=== PATIENT | male | born 1995 ===

== ENCOUNTER 2018-08-22 12:33 | Outpatient (CLI) | payer MEDICAID | END 2018-08-22 12:34 | disposition home or self-care (01) | LOC: C.MRIC 12:34 ==

== ENCOUNTER 2018-09-13 16:23 | Inpatient (IN) | payer MEDICAID ==
[2018-09-13 17:37] LABS: BASO % 0.5 % (0.0-2.0); EOS # 0.1 K/uL (0.0-0.7); EOS % 1.1 % (0.0-4.0); HEMOGLOBIN 14.3 g/dL (12.0-18.0); LYMPH # 1.8 K/uL (1.0-4.3); LYMPH % 25.6 % (20.0-40.0); MEAN CELL VOLUME 89.9 fL (80.0-94.0); MEAN CORPUSCULAR HEMOGLOBIN 29.8 pg (27.0-31.0); MEAN CORPUSCULAR HGB CONC 33.2 g/dL (33.0-37.0); MEAN PLATELET VOLUME 8.5 fL (7.2-11.7); MONO # 0.8 K/uL (0.0-0.8); MONO % 10.9 % (0.0-10.0); NEUT # 4.4 K/uL (1.8-7.0); NEUT % 61.9 % (50.0-75.0); RBC 4.8 Mil/uL (4.40-5.90); RED CELL DISTRIBUTION WIDTH 13.5 % (11.5-14.5); WHITE BLOOD COUNT 7.1 K/uL (4.8-10.8)
[2018-09-13 17:39] LABS: SQUAMOUS EPITHIAL < 1 /hpf (0-5); URINE BILIRUBIN NEGATIVE (NEGATIVE); URINE BLOOD NEGATIVE (NEGATIVE); URINE CLARITY Clear (Clear); URINE COLOR Straw (YELLOW); URINE GLUCOSE (UA) NORMAL (Normal); URINE LEUKOCYTE ESTERASE NEG Leu/uL (Negative); URINE PROTEIN NEGATIVE (NEGATIVE); URINE UROBILINOGEN NORMAL mg/dL (0.2-1.0)
--- NOTE | 2018-09-13 17:46 | C.PDOC ---
History Of Present Illness 22 year old male presents to the ED for evaluation of depression and suicidal ideation. Patient reports feeling depressed with suicidal ideation and having a plan. Patient denies HI, hallucinations, injury, fall, trauma. Time Seen by Provider: 09/13/18 17:04 Chief Complaint (Nursing): Psychiatric Evaluation History Per: Patient History/Exam Limitations: no limitations Onset/Duration Of Symptoms: Hrs Current Symptoms Are (Timing): Still Present Suicide/Self Injury Attempted (Context): None Associated Symptoms: Depression, Suicidal Thoughts, Suicidal Plan Recent travel outside of the [place]: No Additional History Per: Patient Past Medical History Reviewed: Historical Data, Nursing Documentation, Vital Signs Vital Signs: Last Vital Signs Temp 98.1 F 09/13/18 16:43 Pulse 100 H 09/13/18 16:43 Resp 17 09/13/18 16:43 BP 146/84 09/13/18 16:43 Pulse Ox 100 09/13/18 16:43 - Medical History PMH: Depression Surgical History: No Surg Hx - [facility] Procedures INDIVID PSYCHOTHERAP NEC (09/11/13) OTHER GROUP THERAPY (09/11/13) Family History: States: Unknown Family Hx - Social History Hx Tobacco Use: No Hx Alcohol Use: No Hx Substance Use: No - Immunization History Hx Tetanus Toxoid Vaccination: Yes Hx Influenza Vaccination: Yes Hx Pneumococcal Vaccination: No Review Of Systems Constitutional: Negative for: Fever, Chills Cardiovascular: Negative for: Chest Pain Respiratory: Negative for: Cough, Shortness of Breath Gastrointestinal: Negative for: Nausea, Vomiting, Abdominal Pain Skin: Negative for: Rash Neurological: Negative for: Weakness, Numbness Psych: Positive for: Depression, Suicidal ideation Physical Exam - Physical Exam Appears: Non-toxic, No Acute Distress Skin: Normal Color, Warm, Dry Head: Atraumatic, Normacephalic Eye(s): bilateral: Normal Inspection Neck: Normal ROM, Supple Chest: Symmetrical Cardiovascular: Rhythm Regular Respiratory: Normal Breath Sounds, No Rales, No Rhonchi, No Wheezing Gastrointestinal/Abdominal: Soft, No Tenderness Extremity: Normal ROM, No Tenderness, No Swelling Neurological/Psych: Oriented x3, Normal Speech, Other (Depressed, no acute intoxications) Gait: Steady ED Course And Treatment - Laboratory Results Result Diagrams: 09/13/18 17:29 09/13/18 17:29 O2 Sat by Pulse Oximetry: 100 (ON RA) Pulse Ox Interpretation: Normal Progress - Re-Evaluation Re-evaluation Note: 09/13/18 18:07 MED CLEAR FOR CRISIS. CRISIS NOTIFIED - Data Reviewed Data Reviewed: Lab, Old records Medical Decision Making Medical Decision Making: Plan: * Labs * UA * Crisis eval * 1:1 Obs Disposition Counseled Patient/Family Regarding: Studies Performed, Diagnosis - Disposition Disposition: HOSPITALIZED Disposition Time: 21:19 Condition: STABLE Forms: [facility] ([place]) - POA Present On Arrival: None - Clinical Impression Clinical Impression: Severe depression, Suicidal behavior - Scribe Statement The provider has reviewed the documentation as recorded by the Scribe Ciro Peterson All medical record entries made by the Scribe were at my direction and personally dictated by me. I have reviewed the chart and agree that the record accurately reflects my personal performance of the history, physical exam, medical decision making, and the department course for this patient. I have also personally directed, reviewed, and agree with the discharge instructions and disposition.
[2018-09-13 17:49] LABS: BARBITURATES, UR NEGATIVE (NEGATIVE); BENZODIAZEPINES, UR NEGATIVE (NEGATIVE); OPIATES, UR NEGATIVE (NEGATIVE); PHENCYCLIDINE, UR NEGATIVE (NEGATIVE)
[2018-09-13 17:58] LABS: ALB/GLOB RATIO 1.9 (1.0-2.1); ALBUMIN 4.7 g/dL (3.5-5.0); ALT/SGPT 30 U/L (21-72); AST/SGOT 27 U/L (17-59); BLOOD UREA NITROGEN 16 mg/dL (9-20); CALCIUM 9.6 mg/dl (8.6-10.4); GFR NON-AFRICAN AMERICAN > 60
[2018-09-13 23:27] VITALS: O2SAT 98
--- NOTE | 2018-09-14 00:35 | PCM.BM ---
<Eliana Gibson - Last Filed: 09/14/18 00:32> Treatment Plan Problems - Problems identified on initial assessmt Hoplessness and Helpressness Date Initiated: 09/13/18 Time Initiated: 00:45 Date resolved: 09/13/18 Assessment reference: NA Status: Active Social isolation Date Initiated: 09/13/18 Time Initiated: 00:45 Date resolved: 09/13/18 Assessment reference: NA Status: Active Altered sleep pattern Date Initiated: 09/13/18 Time Initiated: 00:45 Date resolved: 09/13/18 Treatment assets and liabiliti Patient Assests: cooperative (ease to engage), insightful, ADL independent (no physical limitation), physically healthy (No medical conditions,), negotiates basic needs (understood the need to follow rules at the unit.) - Milieu Protocol Maintain good personal hygiene: daily Encourage regular showers, daily Remind patient to perform daily oral care, daily Assist patient to perform ADL's Maintain personal safety: every shift Educate patient to report safety concerns to staff, every shift Monitor environment for contraband/sharps Medication safety: Monitor for expected outcome, potential side effects: every shift, Assess barriers to learning: every shift, Assess readiness for medication education: every shift <Caroline Sanchez - Last Filed: 09/16/18 10:55> - Diagnosis (1) Bipolar depression Status: Acute Interventions: 09/16/18 10:56 * Assess/adjust medications daily and /or as needed * See patient on an individual basis 7x/week to assess level of manic behaviors and stability * Discuss risks, benefits, side effects and alternatives of medications * <Itzel Cuello - Last Filed: 09/16/18 14:51> Family Contact Family involvement: Family/SO is involved Family contact: Patient declines to allow family contact at present - Goals for Treatment Patient goals for treatment: "I need a support group." Discharge/Continuing Care - Education Needs Education Needs: Patient Medication, Patient Coping Skills - Discharge Discharge Criteria: Tolerates medication w/o severe side effects, Reduction of target symptoms Discharge to:: Home, With Family - Treatment Team Participation Discussed with Family/SO: No Was Patient/Family/SO present at Treatment Team Meeting: Yes
--- NOTE | 2018-09-14 11:37 | PCM.PSYCH ---
Initial Psychiatric Evaluation - Initial Psychiatric Evaluation Type of Admission: Voluntary Legal Status: Capacity History of Present Illness and Precipitating Events: This is a 22 years old single male, who lives with his parents, came to the [facility] ED with increasingly depressed mood and suicidal ideation. Patient reports history of one inpatient psychiatric hospitalizations in 2013. However he reports that he stopped taking medication after a few months. Patient reports that since past few weeks he is feeling increasingly irritable and agitated. He also reports depressed mood and poor sleep. Patient reports persistent suicidal ideation the past month; however, the past 3 days they have increased in intensity and intent to jump from a great height. Yesterday he became increasingly suicidal so he came to the hospital to get help. He reports irritability, agitation, racing thoughts and anxiety. He also reports depressed mood and feelings of helplessness and worthlessness. He denies any auditory or visual hallucinations or any paranoia. He denies any drinking or any substance abuse. Past medical history None reported Current Medications: Active Medications Generic Name Dose Route Start Last Admin Trade Name Freq PRN Reason Stop Dose Admin Pneumococcal Polyvalent Vaccine 0.5 ml 09/16/18 10:00 Pneumovax 23 Vaccine IM 09/16/18 10:01 .ONCE ONE Past Psychiatric History - Past Psychiatric History Previous Treatment History: Inpatient Pertinent Medical Hx (Current Medical&Sleep Prob, Allergies): Allergies Allergy/AdvReac Type Severity Reaction Status Date / Time No Known Allergies Allergy Verified 09/13/18 16:46 Seroquel 100 mg DAILY 11/21/13 Zoloft 100 mg DAILY 11/21/13 Review of Systems - Review of Systems All systems: reviewed and no additional remarkable complaints except - Psychiatric Psychiatric: Anxiety, Irritability, Mood Swings, Suicidal Ideation Mental Status Examination - Personal Presentation Personal Presentation: Looks stated age - Affect Affect: Constricted, Depressed - Motor Activity Motor Activity: Calm - Reliability in Providing Information Reliability in Providing Information: Fair - Speech Speech: Organized - Mood Mood: Depressed, Anxious - Formal Thought Process Formal Thought Process: Flight of ideas - Obsessions/Compulsions Obsessions: No Compulsions: No - Cognitive Functions Orientation: Person, Place, Situation, Time Sensorium: Alert Attention/Concentration: Attentive Abstract Thinking: [place] Estimate of Intelligence: Below average Judgement: Imparied, as evidence by: Poor judgement, Imparied, as evidence by: Lack of insight into illness - Risk Risk: Suicidal, Diminished functioning - Limitations Limitations: Living alone DSM 5 DX - DSM 5 DSM 5 Diagnosis: Bipolar disorder depressed severe without psychotic features Generalized anxiety disorder - Recommended/Plan of Treatment Treatment Recommendations and Plan of Treatment: Bipolar disorder depressed severe without psychotic features Generalized anxiety disorder CBT Psychoeducation Supportive therapy, group therapy, milieu therapy Trazodone for insomnia [place] for mood Hydroxyzine for anxiety Neurontin for augmentation - Smoking Cessation Smoking Cessation Initiated: No
[2018-09-14] MEDS: Lithium Carbonate 150 MG CAP PO SCH (17:47)
[2018-09-15] MEDS: Lithium Carbonate 150 MG CAP PO SCH (09:21)
--- NOTE | 2018-09-15 13:58 | PCM.PYCHPN ---
Psychiatric Progress Note - Psychiatric Progress Note Patient seen today, length of contact: 15 min Patient Chief Complaint: I am still feeling depressed. Problems Identified/Issues Discussed: Patient was seen and evaluated, chart reviewed and discussed the staff. Patient reports irritability, agitation and anxiety. He reports depressed mood and at times feelings of hopelessness and helplessness. He denies any auditory or visual hallucinations or any paranoia. He is taking medication but denies any side effects. He needs to stay longer for further stabilization. Supportive therapy was given. Medication Change: Yes Medical Record Reviewed: Yes Mental Status Examination - Cognitive Function Orientation: Person, Place, Situation, Time Memory: Intact Attention: WNL Concentration: Poor Association: WNL Fund of Knowledge: Poor - Mood Mood: Depressed, Anxious - Affect Affect: Constricted, Depressed - Speech Speech: Soft - Formal Thought Process Formal Thought Process: Flight of ideas - Suicidal Ideation Suicidal Ideation: No - Homicidal Ideation Homicidal Ideation: No Goal/Treatment Plan - Goal/Treatment Plan Need for Continued Stay: Remain at risks for inpatient hospitalization Progress Toward Problem(s) and Goals/Treatment Plan: Bipolar disorder depressed severe without psychotic features Generalized anxiety disorder CBT Psychoeducation Supportive therapy, group therapy, milieu therapy Trazodone for insomnia [place] for mood Hydroxyzine for anxiety Neurontin for augmentation - Smoking Cessation Smoking Cessation Initiated: No
[2018-09-15] MEDS ORDERED: Lithium Carbonate 150 MG CAP PO SCH (18:00)
[2018-09-16] MEDS ORDERED: Pneumococcal 23-Valent Vaccine IM ONE (10:00)
--- NOTE | 2018-09-16 10:56 | PCM.PYCHPN ---
Psychiatric Progress Note - Psychiatric Progress Note Patient seen today, length of contact: 15 min Patient Chief Complaint: I am still feeling depressed. Problems Identified/Issues Discussed: Patient was seen and evaluated, chart reviewed and discussed the staff. Patient reports irritability, agitation and anxiety. He reports depressed mood and at times feelings of hopelessness and helplessness. He denies any auditory or visual hallucinations or any paranoia. He is taking medication but denies any side effects. He needs to stay longer for further stabilization. Supportive therapy was given. Medication Change: Yes Medical Record Reviewed: Yes Mental Status Examination - Cognitive Function Orientation: Person, Place, Situation, Time Memory: Intact Attention: WNL Concentration: Poor Association: WNL Fund of Knowledge: Poor - Mood Mood: Depressed, Anxious - Affect Affect: Constricted, Depressed - Speech Speech: Soft - Formal Thought Process Formal Thought Process: Flight of ideas - Suicidal Ideation Suicidal Ideation: No - Homicidal Ideation Homicidal Ideation: No Goal/Treatment Plan - Goal/Treatment Plan Need for Continued Stay: Remain at risks for inpatient hospitalization Progress Toward Problem(s) and Goals/Treatment Plan: Bipolar disorder depressed severe without psychotic features Generalized anxiety disorder CBT Psychoeducation Supportive therapy, group therapy, milieu therapy Trazodone for insomnia [place] for mood Hydroxyzine for anxiety Neurontin for augmentation
--- NOTE | 2018-09-17 13:58 | PCM.PYCHPN ---
Psychiatric Progress Note - Psychiatric Progress Note Patient seen today, length of contact: 15 min Patient Chief Complaint: I am still feeling depressed. Problems Identified/Issues Discussed: Patient was seen and evaluated, chart reviewed and discussed the staff. Patient reports irritability, agitation and anxiety. He reports depressed mood and at times feelings of hopelessness and helplessness. He denies any auditory or visual hallucinations or any paranoia. He is taking medication but denies any side effects. He needs to stay longer for further stabilization. Supportive therapy was given. Medication Change: Yes Medical Record Reviewed: Yes Mental Status Examination - Cognitive Function Orientation: Person, Place, Situation, Time Memory: Intact Attention: WNL Concentration: Poor Association: WNL Fund of Knowledge: Poor - Mood Mood: Depressed, Anxious - Affect Affect: Constricted, Depressed - Speech Speech: Soft - Formal Thought Process Formal Thought Process: Flight of ideas - Suicidal Ideation Suicidal Ideation: No - Homicidal Ideation Homicidal Ideation: No Goal/Treatment Plan - Goal/Treatment Plan Need for Continued Stay: Remain at risks for inpatient hospitalization Progress Toward Problem(s) and Goals/Treatment Plan: Bipolar disorder depressed severe without psychotic features Generalized anxiety disorder CBT Psychoeducation Supportive therapy, group therapy, milieu therapy Trazodone for insomnia [place] for mood Hydroxyzine for anxiety Neurontin for augmentation
[2018-09-19 06:45] VITALS: BP 126/62; PULSE 102; RESP 18; TEMP 98.3
--- NOTE | 2018-09-19 10:12 | PCM.PYCHDC ---
Mental Status Examination - Mental Status Examination Orientation: Person, Place, Situation, Time Memory: Intact Mood: Neutral Affect: Constricted Speech: Soft Attention: WNL Concentration: WNL Association: WNL Fund of Knowledge: WNL Formal Thought Process: No Impairment Description of patient's judgement and insight: good, fair Psychotic Thoughts and Behaviors: denies any AVH Suicidal Ideation: No Current Homicidal Ideation?: No Discharge Summary - Discharge Note Reason for Hospitalization: This is a 22 years old single male, who lives with his parents, came to the [facility] ED with increasingly depressed mood and suicidal ideation. Patient reports history of one inpatient psychiatric hospitalizations in 2013. However he reports that he stopped taking medication after a few months. Patient reports that since past few weeks he is feeling increasingly irritable and agitated. He also reports depressed mood and poor sleep. Patient reports persistent suicidal ideation the past month; however, the past 3 days they have increased in intensity and intent to jump from a great height. Yesterday he became increasingly suicidal so he came to the hospital to get help. He reports irritability, agitation, racing thoughts and anxiety. He also reports depressed mood and feelings of helplessness and worthlessness. He denies any auditory or visual hallucinations or any paranoia. He denies any drinking or any substance abuse. Consultations:: List each consultation separately and include: 1. Reason for request. 2. Findings. 3. Follow-up Summary of Hospital Course include:: 1. Description of specific treatment plan utilized for patients during their course of treatmen. 2. Summarize the time- course for resolution of acute symptoms and/or regressed behaviors. 3. Describe issues identified and worked on during hospitalization. 4. Describe medication utilized. 5. Describe medical problems identified and treated. 6. Reassessment of suicide risk Summary of Hospital Course: This is a 22 years old single male, who lives with his parents, came to the [facility] ED with increasingly depressed mood and suicidal ideation. Patient reports history of one inpatient psychiatric hospitalizations in 2013. However he reports that he stopped taking medication after a few months. Patient reports that since past few weeks he is feeling increasingly irritable and agitated. He also reports depressed mood and poor sleep. Patient reports persistent suicidal ideation the past month; however, the past 3 days they have increased in intensity and intent to jump from a great height. Yesterday he b ecame increasingly suicidal so he came to the hospital to get help. He reports irritability, agitation, racing thoughts and anxiety. He also reports depressed mood and feelings of helplessness and worthlessness. He denies any auditory or visual hallucinations or any paranoia. He denies any drinking or any substance abuse. Past medical history None reported - Diagnosis (1) Bipolar depression Current Visit: Yes Status: Acute - Final Diagnosis (DSM 5) Condition upon Discharge: STABLE DSM 5: Bipolar disorder depressed severe without psychotic features Generalized anxiety disorder Disposition: HOME/ ROUTINE Follow-up Treatment Plan: Bipolar disorder depressed severe without psychotic features Generalized anxiety disorder CBT Psychoeducation Supportive therapy, group therapy, milieu therapy Trazodone for insomnia [place] for mood Hydroxyzine for anxiety Neurontin for augmentation Prescriptions/Medication Reconciliation: [place] Carbonate [[place] Carbonate 300MG] 300 mg PO TID #90 cap traZODone [Desyrel] 100 mg PO HS #30 tab - Smoking Cessation Smoking Cessation Medication prescribed: No - Antipsychotic Medications Pt discharged on 2 or more routine antipsychotic medications: No
--- NOTE | 2018-09-19 10:12 | PCM.PYCHPN ---
Psychiatric Progress Note - Psychiatric Progress Note Patient seen today, length of contact: 15 min Patient Chief Complaint: I am still feeling depressed. Problems Identified/Issues Discussed: Patient was seen and evaluated, chart reviewed and discussed the staff. Patient reports irritability, agitation and anxiety. He reports depressed mood and at times feelings of hopelessness and helplessness. He denies any auditory or visual hallucinations or any paranoia. He is taking medication but denies any side effects. He needs to stay longer for further stabilization. Supportive therapy was given. Medication Change: Yes Medical Record Reviewed: Yes Mental Status Examination - Cognitive Function Orientation: Person, Place, Situation, Time Memory: Intact Attention: WNL Concentration: WNL Association: [facility] Fund of Knowledge: [facility] Decription of patient's judgement and insights: good, fair - Mood Mood: Neutral - Affect Affect: Constricted - Speech Speech: Soft - Formal Thought Process Formal Thought Process: No Impairment Psychotic Thoughts and Behaviors: denies any AVH - Suicidal Ideation Suicidal Ideation: No - Homicidal Ideation Homicidal Ideation: No Goal/Treatment Plan - Goal/Treatment Plan Need for Continued Stay: Remain at risks for inpatient hospitalization Progress Toward Problem(s) and Goals/Treatment Plan: Bipolar disorder depressed severe without psychotic features Generalized anxiety disorder CBT Psychoeducation Supportive therapy, group therapy, milieu therapy Trazodone for insomnia [place] for mood Hydroxyzine for anxiety Neurontin for augmentation
== END 2018-09-19 11:55 | disposition home or self-care (01) | DRG 430 ==
LOC: C.ER 16:23 → C.9E 21:20 → C.5E 22:42
PROVIDERS: ADMIT Psychiatry & Neurology Psychiatry; ATTEND Psychiatry & Neurology Psychiatry
PROC: GZHZZZZ Group Psychotherapy (ICD-10-PCS; principal; 2018-09-13)
PROC: GZ56ZZZ Individual Psychotherapy, Supportive (ICD-10-PCS; 2018-09-13)
DX: F31.4 Bipolar disorder, current episode depressed, severe, without psychotic features (principal); F41.1 Generalized anxiety disorder; G47.00 Insomnia, unspecified; R45.851 Suicidal ideations